=== PATIENT | male | born 1970 | race Caucasian/White ===

== ENCOUNTER 2019-12-28 18:44 | Emergency (ER) | payer OTHER ==
--- OUTSIDE RECORDS SUMMARY | 2019-12-28 18:47 | XMS REPORT | Summary of Care ---
:1970 Author Organization [facility] Address [address] [place] [id number] Care Team Providers Name Role Phone Thee Primary Care Provider Reason for Visit Reason Comments Exposure covid asymptomatic Encounter Details Date Type Department Care Team Description 12/14/[address] [facility] Family Porfirio Mclean [place] [facility] [place] [address] Exposure to Covid-19 [facility], Adc Fam Pob I Virus (Primary Dx) [address] [place] [address] Allergies Not on Filedocumented as of this encounter (statuses as of 12/14/2019) Medications Not on filedocumented as of this encounter (statuses as of 12/14/2019) Active Problems Not on filedocumented as of this encounter (statuses as of 12/14/2019) Social History Tobacco Use Types Packs/Day Years Used Date Never Assessed Sex Assigned at Date Recorded Not on file Job Start Date Occupation Industry Not on file Not on file Not on file Travel History Travel Start Travel End No recent travel history available. COVID-19 Exposure Response Date Recorded In the last month, have you been in contact with Yes 12/14/2019 11:03 AM CDT someone who was confirmed or suspected to have Coronavirus / COVID-19? documented as of this encounter Last Filed Vital Signs Not on filedocumented in this encounter Plan of Treatment Name Type Priority Associated Diagnoses Order S chedule CORONAVIRUS COVID-19 LAB Routine Exposure to Covid-19 Expected: 12/14/2019, TESTING Virus Expires: 2020 Health Maintenance Due Date Last Done Comments DTaP,Tdap,and Td Vaccines ( - 1983 Tdap) INFLUENZA VACCINE (Season Ended) 2020 PNEUMOCOCCAL 0-64 YEARS COMBINED Aged Out No longer eligible based on SERIES patient's age to complete this topic documented as of this encounter Results Not on filedocumented in this encounter Visit Diagnoses Diagnosis Exposure to Covid-19 Virus - Primary documented in this encounter
--- OUTSIDE RECORDS SUMMARY | 2019-12-28 18:47 | XMS REPORT ---
:1970 Author Organization [facility] t Address [address] [place] [address] Dr. Mosqueda [address] [place] [id number] Care Team Providers Name Role Phone Lab, [facility] Pob I Attending Clinician Unavailable Problems This patient has no known problems. Allergies, Adverse Reactions, Alerts This patient has no known allergies or adverse reactions. Medications This patient has no known medications. Procedures This patient has no known procedures. Encounters Start End Encounter Admission Attending Care Care Encounter Source Date/Time Date/Time Type Type Clinicians Facility Department ID 2019-12-14 2019-12-14 Momd Teacher Lab, [facility] [id number] 11:10:51 11:15:37 [facility] [id number] [place] [id number] Professdominick [id number] [address]al [address] Results This patient has no known results.
--- OUTSIDE RECORDS SUMMARY | 2019-12-28 18:47 | XMS REPORT | Summary of Care ---
:1970 Author Organization [facility] Address [address] [place] [address] Care Team Providers Name Role Phone Thee Primary Care Provider Reason for Visit Reason Comments Exposure covid asymptomatic Encounter Details Date Type Department Care Team Description 12/14/2019 [place] Visit [facility] Family Porfirio Mclean [place] [facility] [place] [address] Exposure to Covid-19 [facility], Adc Fam Pob I Virus (Primary Dx) [address] [place] [address] Allergies Not on Filedocumented as [...]
[2019-12-28] MEDS ORDERED: SILVER SULFADIAZINE 1% 25 GM TOP ONE (21:43)
[2019-12-28 22:10] VITALS: BP 129/85; TEMP 98.8; O2SAT 99
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
== END 2019-12-28 21:55 | disposition home or self-care (01) ==
LOC: ER 18:44
DX: T22.211A Burn of second degree of right forearm, initial encounter (principal); X13.1XXA Other contact with steam and other hot vapors, initial encounter; Y93.9 Activity, unspecified; Y92.89 Other specified places as the place of occurrence of the external cause; Y99.8 Other external cause status
CPT/HCPCS: 99284